=== PATIENT | male | born 1965 ===

== ENCOUNTER 2020-11-06 08:16 | Day surgery (SDC) | payer OTHER | END 2020-11-06 15:00 | disposition home or self-care (01) | LOC: AMB-ENDOS 08:16 | PROVIDERS: ATTEND Colon & Rectal Surgery | DX: D12.3 Benign neoplasm of transverse colon (principal); Z20.828 Contact with and (suspected) exposure to other viral communicable diseases; K64.1 Second degree hemorrhoids ==